=== PATIENT | male | born 1975 | race American Indian/Alaskan Native ===

== ENCOUNTER 2021-02-12 13:53 | Emergency (ER) | payer SELFPAY ==
--- NOTE | 2021-02-12 16:21 | Emergency Department Report ---
ED ENT HPI - General Chief complaint: Dental/Oral Stated complaint: ABSCESS SORE MOUTH Time Seen by Provider: 02/12/21 16:13 Source: patient Mode of arrival: Ambulatory Limitations: No Limitations - History of Present Illness Initial comments: Patient is a 45-year-old male presents emergency room with complaints of right upper dental pain that began a week ago. He states over the last couple days he has noticed some swelling in the region. He states he last saw a dentist in September and was advised that he needs to have dental work performed but s econdary to loss of insurance he was unable to follow-up. He denies any fever, nausea, vomiting, diarrhea, facial swelling, difficulty swallowing, difficulty breathing. No past medical history. No allergies to medications. - Related Data Previous Rx's Medication Instructions Recorded Last Taken Type Chlorhexidine Mouthwash [Peridex] 15 ml MM BID #1 bottle 02/12/21 Unknown Rx Ibuprofen [Motrin 600 MG tab] 600 mg PO Q8H PRN #20 tablet 02/12/21 Unknown Rx Penicillin Vk [Veetids TAB] 500 mg PO QID 7 Days #56 tablet 02/12/21 Unknown Rx Allergies Allergy/AdvReac Type Severity Reaction Status Date / Time No Known Allergies Allergy Unverified 02/12/21 15:24 ED Dental HPI - General Chief complaint: Dental/Oral Stated complaint: ABSCESS SORE MOUTH Time Seen by Provider: 02/12/21 16:13 Source: patient Mode of arrival: Ambulatory Limitations: No Limitations - Related Data Previous Rx's Medication Instructions Recorded Last Taken Type Chlorhexidine Mouthwash [Peridex] 15 ml MM BID #1 bottle 02/12/21 Unknown Rx Ibuprofen [Motrin 600 MG tab] 600 mg PO Q8H PRN #20 tablet 02/12/21 Unknown Rx Penicillin Vk [Veetids TAB] 500 mg PO QID 7 Days #56 tablet 02/12/21 Unknown Rx Allergies Allergy/AdvReac Type Severity Reaction Status Date / Time No Known Allergies Allergy Unverified 02/12/21 15:24 ED Review of Systems ROS: Stated complaint: ABSCESS SORE MOUTH Other details as noted in HPI Comment: All other systems reviewed and negative ED Past Medical Hx - Past Medical History Previous Medical History?: No - Surgical History Past Surgical History?: No - Social History Smoking Status: Never Smoker Substance Use Type: None - Medications Home Medications: Home Medications Medication Instructions Recorded Confirmed Last Taken Type Chlorhexidine Mouthwash [Peridex] 15 ml MM BID #1 bottle 02/12/21 Unknown Rx Ibuprofen [Motrin 600 MG tab] 600 mg PO Q8H PRN #20 tablet 02/12/21 Unknown Rx Penicillin Vk [Veetids TAB] 500 mg PO QID 7 Days #56 tablet 02/12/21 Unknown Rx ED Physical Exam - General Limitations: No Limitations General appearance: alert, in no apparent distress - Head Head exam: Present: atraumatic, normocephalic - Eye Eye exam: Present: normal appearance - ENT ENT exam: Present: mucous membranes moist, other (multiple dental carries/missing teeth, there is a dental carry present to the right upper molar, there is adjacent edema/induration present to the gumline, no facial edema, uvula is midline, no uvular edema or deviation, no trismus, no tongue elevation, no muffled voice, no submandibular edema) - Respiratory Respiratory exam: Present: normal lung sounds bilaterally. Absent: respiratory distress, wheezes, rales, rhonchi, stridor, chest wall tenderness, accessory muscle use, decreased breath sounds, prolonged expiratory - Cardiovascular Cardiovascular Exam: Present: regular rate, normal rhythm, normal heart sounds. Absent: systolic murmur, diastolic murmur, rubs, gallop - Neurological Exam Neurological exam: Present: alert, oriented X3 - Psychiatric Psychiatric exam: Present: normal affect, normal mood - Skin Skin exam: Present: warm, dry, intact ED Course Vital Signs 02/12/21 02/12/21 15:28 17:31 Temperature 98.8 F Pulse Rate 51 L 60 Respiratory 18 16 Rate Blood Pressure 141/80 Blood Pressure 152/91 [Right] O2 Sat by Pulse 98 98 Oximetry ED Medical Decision Making - Medical Decision Making Patient is a 45-year-old male presents emergency room with complaints of right upper dental pain that began a week ago. He states over the last couple days he has noticed some swelling in the region. He states he last saw a dentist in September and was advised that he needs to have dental work performed but secondary to loss of insurance he was unable to follow-up. He denies any fever, nausea, vomiting, diarrhea, facial swelling, difficulty swallowing, difficulty breathing. No past medical history. No allergies to medications. Vitals are stable. On exam:multiple dental carries/missing teeth, there is a dental carry present to the right upper molar, there is adjacent edema/induration present to the gumline, no facial edema, uvula is midline, no uvular edema or deviation, no trismus, no tongue elevation, no muffled voice, no submandibular edema. Examination appears consistent with dental caries and dental abscess. No signs of facial cellulitis, facial abscess, Kyle's at this time. Patient given prescription for penicillin VK, chlorhexidine mouthwash, ibuprofen. Advised patient Please use medication as prescribed. Follow-up with a dentist. It is very important that you follow-up. Return to emergency room for any new or worsening symptoms. Critical care attestation.: If time is entered above; I have spent that time in minutes in the direct care of this critically ill patient, excluding procedure time. ED Disposition Clinical Impression: Dental caries, Dental abscess Disposition: TO HOME OR SELFCARE Is pt being admited?: No Does the pt Need Aspirin: No Condition: Stable Instructions: Dental Abscess Additional Instructions: Please use medication as prescribed. Follow-up with a dentist. It is very important that you follow-up. Return to emergency room for any new or worsening symptoms. Prescriptions: Ibuprofen [Motrin 600 MG tab] 600 mg PO Q8H PRN #20 tablet PRN Reason: Pain Chlorhexidine Mouthwash [Peridex] 15 ml MM BID #1 bottle Penicillin Vk [Veetids TAB] 500 mg PO QID 7 Days #56 tablet Referrals: [facility] [Outside] - 2-3 Days [facility] [Outside] - 2-3 Days Time of Disposition: 16:20 Print Language: NAMIBIAN
[2021-02-12 17:32] VITALS: BP 152/91
== END 2021-02-12 17:32 | disposition home or self-care (01) ==
LOC: ED 13:53
DX: K02.9 Dental caries, unspecified (principal); K04.7 Periapical abscess without sinus; Z79.899 Other long term (current) drug therapy
CPT/HCPCS: 99282

== ENCOUNTER 2021-03-09 07:20 | Emergency (ER) | payer SELFPAY ==
[2021-03-09 07:26] VITALS: BP 126/82
[2021-03-09] MEDS ORDERED: traMADol 50 MG TAB PO ONE (08:00)
--- NOTE | 2021-03-09 08:04 | Emergency Department Report ---
ED ENT HPI - General Chief complaint: Dental/Oral Stated complaint: JAW PAIN/EDEMA Time Seen by Provider: 03/09/21 07:53 Source: patient Mode of arrival: Ambulatory Limitations: No Limitations - History of Present Illness Initial comments: 45-year-old male presents to the emergency room complaining of toothache and right facial swelling. He states that he was seen at this emergency room for similar complaint on 12 February. He completed the oral antibiotics but states he has not been able to get into see a dentist. Patient denies fever chills no monique st pain, shortness of breath, no difficulty swallowing. He denies any past medical history. He is in no acute distress MD complaint: tooth pain -: week(s) Location: tooth # (3,4,5,) Severity: moderate Severity scale (0 -10): 8 Quality: sharp Consistency: constant Improves with: none Worsens with: eating Context- Dental: history of dental caries Associated Symptoms: toothache. denies: fever, cough, gum swelling, pain with swallowing, sore throat, tinnitus, hearing loss, discharge from ear, rhinorrhea - Related Data Previous Rx's Medication Instructions Recorded Last Taken Type Chlorhexidine Mouthwash [Peridex] 15 ml MM BID #1 bottle 02/12/21 Unknown Rx Ibuprofen [Motrin 600 MG tab] 600 mg PO Q8H PRN #20 tablet 02/12/21 Unknown Rx Penicillin Vk [Veetids TAB] 500 mg PO QID 7 Days #56 tablet 02/12/21 Unknown Rx Amoxicillin [Trimox CAP] 500 mg PO Q8H #21 capsule 03/09/21 Unknown Rx Ibuprofen [Motrin 800 MG tab] 800 mg PO Q8HR PRN #21 tablet 03/09/21 Unknown Rx Allergies Allergy/AdvReac Type Severity Reaction Status Date / Time No Known Allergies Allergy Unverified 02/12/21 15:24 ED Dental HPI - General Chief complaint: Dental/Oral Stated complaint: JAW PAIN/EDEMA Time Seen by Provider: 03/09/21 07:53 Source: patient Mode of arrival: Ambulatory Limitations: No Limitations - Related Data Previous Rx's Medication Instructions Recorded Last Taken Type Chlorhexidine Mouthwash [Peridex] 15 ml MM BID #1 bottle 02/12/21 Unknown Rx Ibuprofen [Motrin 600 MG tab] 600 mg PO Q8H PRN #20 tablet 02/12/21 Unknown Rx Penicillin Vk [Veetids TAB] 500 mg PO QID 7 Days #56 tablet 02/12/21 Unknown Rx Amoxicillin [Trimox CAP] 500 mg PO Q8H #21 capsule 03/09/21 Unknown Rx Ibuprofen [Motrin 800 MG tab] 800 mg PO Q8HR PRN #21 tablet 03/09/21 Unknown Rx Allergies Allergy/AdvReac Type Severity Reaction Status Date / Time No Known Allergies Allergy Unverified 02/12/21 15:24 ED Review of Systems ROS: Stated complaint: JAW PAIN/EDEMA Other details as noted in HPI Comment: All other systems reviewed and negative Constitutional: no symptoms reported. denies: chills, fever ENT: dental pain, other (left jaw swelling) Respiratory: denies: cough, orthopnea, shortness of breath, SOB with exertion Cardiovascular: denies: chest pain, palpitations, dyspnea on exertion, edema, syncope, paroxysmal nocturnal dyspnea Endocrine: no symptoms reported Gastrointestinal: denies: abdominal pain, diarrhea Skin: denies: as per HPI Neurological: denies: headache, weakness, numbness, paresthesias, confusion ED Past Medical Hx - Past Medical History Previous Medical History?: No - Surgical History Past Surgical History?: Yes Additional Surgical History: wisdom tooth - Social History Smoking Status: Never Smoker Substance Use Type: None - Medications Home Medications: Home Medications Medication Instructions Recorded Confirmed Last Taken Type Chlorhexidine Mouthwash [Peridex] 15 ml MM BID #1 bottle 02/12/21 Unknown Rx Ibuprofen [Motrin 600 MG tab] 600 mg PO Q8H PRN #20 tablet 02/12/21 Unknown Rx Penicillin Vk [Veetids TAB] 500 mg PO QID 7 Days #56 tablet 02/12/21 Unknown Rx Amoxicillin [Trimox CAP] 500 mg PO Q8H #21 capsule 03/09/21 Unknown Rx Ibuprofen [Motrin 800 MG tab] 800 mg PO Q8HR PRN #21 tablet 03/09/21 Unknown Rx ED Physical Exam - General Limitations: No Limitations General appearance: alert, in no apparent distress - Head Head exam: Present: atraumatic - Eye Eye exam: Present: normal appearance, other (right jaw mild swelling ) - ENT ENT exam: Present: mucous membranes dry, other (Widespread dental caries gum swelling around tooth #3 4 and 5 he is able to open his mouth fully midline u vula) - Neck Neck exam: Present: normal inspection, full ROM. Absent: lymphadenopathy - Respiratory Respiratory exam: Present: normal lung sounds bilaterally. Absent: respiratory distress - Cardiovascular Cardiovascular Exam: Present: regular rate, normal heart sounds - Extremities Exam Extremities exam: Present: normal inspection - Neurological Exam Neurological exam: Present: alert - Psychiatric Psychiatric exam: Present: normal affect - Skin Skin exam: Present: warm, dry, intact ED Course Vital Signs 03/09/21 07:25 Temperature 98.5 F Pulse Rate 71 Respiratory 20 Rate Blood Pressure 126/82 [Right] O2 Sat by Pulse 100 Oximetry ED Medical Decision Making - Medical Decision Making 45-year-old male with a history of dental caries. He was last seen in the emergency room on 02/12/21 for dental abscess treated with penicillin VK ibuprofen and chlorhexidine mouthwash. Patient completed these medications and the symptoms returned which include gum swelling mild right facial swelling and dental pain. He denies fever, no chest pain or shortness of breath. Patient states he has not been able to follow-up with a dentist but after this and episode he plans to see a dentist as soon as possible. Plan is to prescribe clindamycin and ibuprofen for pain and to continue chlorhexidine mouthwash at home Critical Care Time: No Critical care attestation.: If time is entered above; I have spent that time in minutes in the direct care of this critically ill patient, excluding procedure time. ED Disposition Clinical Impression: Dental abscess Disposition: TO HOME OR SELFCARE Is pt being admited?: No Does the pt Need Aspirin: No Condition: Stable Instructions: Dental Abscess, [id number], Preventive Dental Care, Adult Additional Instructions: Continue doing chlorhexidine mouthwash. It is important that you follow-up with a dentist as soon as possible. Take antibiotic until finished. Prescriptions: Ibuprofen [Motrin 800 MG tab] 800 mg PO Q8HR PRN #21 tablet PRN Reason: Mouth Pain Amoxicillin [Trimox CAP] 500 mg PO Q8H #21 capsule Referrals: PRIMARY CARE, [Primary Care Provider] - 3-5 Days [facility] [Outside] - 3-5 Days [facility] [Outside] - 3-5 Days Time of Disposition: 08:19
== END 2021-03-09 08:28 | disposition home or self-care (01) ==
LOC: ED 07:20
DX: K04.7 Periapical abscess without sinus (principal); Z79.1 Long term (current) use of non-steroidal anti-inflammatories (NSAID); Z79.2 Long term (current) use of antibiotics; Z79.899 Other long term (current) drug therapy
CPT/HCPCS: 99282

== ENCOUNTER → 2022-06-11 | Emergency (ER) | payer SELFPAY ==
[2022-06-11 21:16] VITALS: BP 120/80
== END ==
LOC: ED 20:05
DX: K08.89 Other specified disorders of teeth and supporting structures (principal); Z53.21 Procedure and treatment not carried out due to patient leaving prior to being seen by health care provider